=== PATIENT | male | born 1980 | race Caucasian/White ===

== ENCOUNTER 2019-04-21 06:14 | Observation (INO) | payer BC ==
[2019-04-20 12:06] VITALS: BMI 25.0
[2019-04-21 06:53] LABS: #Eosinphils 0.1 thou/uL (0.0-0.7); #Lymphocytes 2.1 thou/uL (1.20-3.40); #Monocytes 0.5 thou/uL (0.11-0.59); #Neutrophils 2.7 thou/uL (1.40-6.50); %Basophils 0.3 % (0.0-1.0); %Eosinophils 1.9 % (0.0-10.0); %Lymphocytes 38.8 % (21.0-51.0); %Monocytes 9.6 % (0.0-10.0); %Neutrophils 49.4 % (42.0-75.0); Hemoglobin 15.6 g/dL (14.0-18.0); Mean Corpuscular HGB CONC 33.5 g/dL (32.0-36.0); Mean Corpuscular Hemoglobin 28.4 pg (27.0-31.0); Mean Corpuscular Volume 84.8 fL (78.0-98.0); Mean Platelet Volume 7.3 fL (7.4-10.4); Platelet Count 244 thou/uL (130-400); Red Blood Cell (RBC) Count 5.49 mill/uL (4.70-6.10); White Blood Cell (WBC) Count 5.4 thou/uL (4.8-10.8)
[2019-04-21 07:00] LABS: PTT 26.2 SEC (22.9-36.1); Prothrombin Time 12.7 SEC (12.0-14.7)
[2019-04-21] MEDS ORDERED: Heparin 10,000 UNITS/1 ML VIAL ONE ×2 (07:07→13:24)
[2019-04-21] MEDS ORDERED: Lidocaine 1% (PF) 30 ML VIAL ONE (07:11)
[2019-04-21 07:13] LABS: Anion Gap 12 mmol/L (10-20); BUN (Urea Nitrogen) 16 mg/dL (8.9-20.6); Calc. Creatinine Clearance 140 mL/min (70-130); Calcium 9.6 mg/dL (7.8-10.44); Carbon Dioxide 24 mmol/L (22-29); Chloride 107 mmol/L (98-107); Estimated GFR-MDRD Greater than 90; Glucose 95 mg/dL (70-105); Sodium 139 mmol/L (136-145)
[2019-04-21] MEDS ORDERED: Propofol 500 MG/50 ML VIAL ONE (10:47)
[2019-04-21] MEDS ORDERED: Midazolam HCl 2 mg/2 ml Vial ONE (10:48)
[2019-04-21] MEDS ORDERED: Fentanyl 100 MCG/2 ML VIAL ONE (10:48)
[2019-04-21] MEDS ORDERED: Heparin 25,000 units/D5W 500 ML ONE (12:05)
[2019-04-21] MEDS ORDERED: Isoproterenol 0.2 MG/1 ML AMP ONE (12:08)
[2019-04-21] MEDS ORDERED: Protamine Sulfate 50 MG/5 ML VIAL ONE (13:57)
[2019-04-21] MEDS ORDERED: Ketorolac Tromethamine 30 MG/ML VIAL IVP PRN (15:09)
[2019-04-21] MEDS ORDERED: Acetaminophen/Codeine 30-300mg Tablet PO PRN (15:10)
[2019-04-21] MEDS ORDERED: Zolpidem Tartrate 5 MG TAB PO PRN (15:10)
[2019-04-21] MEDS ORDERED: Ondansetron PF 4 MG/2 ML Vial ONE (15:28)
--- NOTE | 2019-04-21 15:29 | EKG ---
Test Reason : PREOP Blood Pressure : / mmHG Vent. Rate : 067 BPM Atrial Rate : 067 BPM P-R Int : 136 ms QRS Dur : 106 ms QT Int : 384 ms P-R-T Axes : 050 073 032 degrees QTc Int : 405 ms Normal sinus rhythm Normal ECG No previous ECGs available Confirmed by ROSSI HRENANDEZ, DR. Bustamante (4) on 04/21/2019 3:29:10 PM Referred By: [facility] Confirmed By:DR. Robby RICHEY MD
--- NOTE | 2019-04-21 16:32 | OP ---
DATE OF PROCEDURE: 04/21/2019 PROCEDURES PERFORMED: Electrophysiology study and radiofrequency ablation. ADDITIONAL REFERRING PHYSICIAN: Sudarshan Hayes MD REASON FOR PROCEDURE: Mr. Joyner is a 38-year-old man with structurally normal heart, who presenting with recurrent SVTs, he is for EP study and radiofrequency ablation procedure. DESCRIPTION OF PROCEDURE: The patient received deep sedation with propofol by Anesthesia specialist. After adequate level of sedation achieved, the left and right femoral venous area was prepped and draped and anesthetized using subcutaneous lidocaine. Under ultrasound guidance, left femoral vein was cannulated x2 and a 6 and 8-Tunisian short sheaths were introduced, which was used to advance a decapolar catheter and an octapolar catheter to the RV, RA, CS, and His bundle position. Pacing, mapping, and recording were performed in each location including the CS pacing the left atrium. Following findings were noted, baseline rhythm was sinus rhythm with cycle length 802 milliseconds, MN 149 milliseconds, QRS 190 milliseconds, QT 360 milliseconds, AH 70 milliseconds, and HV 52 milliseconds. The AV Wenckebach cycle length was 340 milliseconds. The VA conduction was seen centrally down to 360 milliseconds. Ventricular pacing after which the retrograde atrial activation pattern changed to a lateral wall CS 2, 3, and 4 area. Earliest activation pattern with VA block 320 milliseconds or less. The extra stimuli testing was performed in atrium with AV jennifer ERP was 600/240 milliseconds. No definite dual AV jennifer physiology was seen during an extra stimulus testing, though a supraventricular tachycardia was induced at 360 milliseconds with earliest atrial activation at the CS 3 and 4 area. Possible pathway potentials were also observed in the CS 3, 4, 5, and 6 leads. During the tachycardia, burst ventricular overdrive pacing performed, which terminated the tachyarrhythmia. 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 Therefore, right femoral venous area was prepped, draped, and anesthetized using subcutaneous lidocaine and an 8 and 11-Tunisian sheath were introduced. For the 11-Tunisian sheath, an intracardiac echocardiogram probe was advanced to the right atrium, which was used to monitor the pericardial space and the transseptal procedure. The 8-Tunisian sheath was changed to an SL1 sheath, which was used to perform transseptal procedure after IV heparin was administered. IV heparin boluses and drip were administered throughout the case to keep ACT over 350. Following that the 3D map of the left atrium was obtained with a ThermoCool SFST catheter advanced through the SL1 sheath in the left atrium. The earliest activation of the atrium was mapped in both in tachycardia as well as during ventricular pacing. On occasional mechanical bumping of the pathway was seen, but its conduction recurred and we were able to locate the earliest activation about 134 milliseconds to the pacing spike. The radiofrequency ablation at this area was performed. A total of 3 lesions at 1 minute and 40 seconds were delivered. During radiofrequency ablation, block over the lateral accessory pathway was seen and central VA conduction was noted. Following that, burst ventricular pacing was performed and we did not see conduction of the lateral accessory pathway. Also, no further recurrent tachyarrhythmia was seen on and off Isuprel. LV pacing was also performed revealing no evidence of further accessory pathway. At the end of the case, the catheters were pulled. The ICE catheter was used to assess pericardial effusion was not seen. Cardiac silhouette did not change throughout the procedure. The sheaths were pulled in the collaborative physician after stopping and reversing IV heparin with protamine. Basket closure device was used as well. CONCLUSION: 1. 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 2. Successful transseptal procedure and intracardiac echo monitoring performed. 3. Successful ablation of the left accessory pathway made at posterior location is performed. 4. Normal sinus and AV jennifer function pre and postprocedure. PLAN: Routine post ablation care and monitor for any recurrence of arrhythmias. Job ID: [id number]
[2019-04-21] MEDS ORDERED: Ketorolac Tromethamine 30 MG/ML VIAL ONE (17:13)
[2019-04-21] MEDS ORDERED: Simethicone Chewable 80 MG TAB PO PRN (22:27)
[2019-04-21] MEDS ORDERED: Ondansetron ODT 4 MG TAB PO PRN (22:28)
[2019-04-22 08:23] VITALS: BP 112/64; TEMP 98.4
--- NOTE | 2019-04-22 12:48 | EKG ---
Test Reason : POSTOP Blood Pressure : / mmHG Vent. Rate : 114 BPM Atrial Rate : 114 BPM P-R Int : 132 ms QRS Dur : 092 ms QT Int : 302 ms P-R-T Axes : 074 068 022 degrees QTc Int : 416 ms Sinus tachycardia Otherwise normal ECG When compared with ECG of 21-APR-2019 10:23, Vent. rate has increased BY 47 BPM Confirmed by ROSSI HERNANDEZ, DR. Bustamante ([id number]) on 04/22/2019 12:47:58 PM Referred By: [facility] Confirmed By:DR. Robby RICHEY MD
--- NOTE | 2019-04-22 12:50 | EKG ---
Test Reason : Blood Pressure : / mmHG Vent. Rate : 074 BPM Atrial Rate : 074 BPM P-R Int : 134 ms QRS Dur : 104 ms QT Int : 376 ms P-R-T Axes : 070 065 037 degrees QTc Int : 417 ms Normal sinus rhythm Normal ECG When compared with ECG of 21-APR-2019 15:19, (Unconfirmed) Vent. rate has decreased BY 40 BPM Confirmed by ROSSI HERNANDEZ, . SChristopher (4) on 04/22/2019 12:50:34 PM Referred By: [facility] Confirmed By:DR. Robby RICHEY MD
--- NOTE | 2019-04-23 04:59 | DIS ---
DATE OF ADMISSION: 04/21/2019 DATE OF DISCHARGE: 04/22/2019 ADMISSION DIAGNOSES: 1. Recurrent supraventricular tachycardia. 2. Status post EP study demonstrating left lower accessory pathway with successful ablation. SUBJECTIVE: Mr. Castano is doing well overnight, had a minor abdominal discomfort but has resolved. His vital signs remained stable. No bleeding at the groin site is noted. OBJECTIVE: VITAL SIGNS: Blood pressure 112/64, heart rate 79, temperature 98.4 degrees Fahrenheit. Rhythm strips reveal continued sinus rhythm. GENERAL: Reveals no groin hematoma. CHEST: Clear. Jugular veins not distended. HEART: Sounds are regular rate and rhythm. No murmur or gallop or rub is appreciated. Groin sites without hematoma or lower extremity edema. ASSESSMENT: Mr. Castano is a very pleasant 38-year-old man with history of supraventricular tachyarrhythmias. He underwent EP study and radiofrequency ablation eliminating lateral accessory pathway. He seems to be doing well with no recurrences. PLAN: Routine discharge. Continue aspirin 81 mg two tablets next month and routine follow up in our office in 6 weeks. Job ID: [id number]
== END 2019-04-22 10:52 | disposition home or self-care (01) ==
LOC: CCL 06:14 → 2SW 14:53
PROVIDERS: ADMIT Internal Medicine Cardiovascular Disease; ATTEND Internal Medicine Cardiovascular Disease
PROC: 4A023FZ Measurement of Cardiac Rhythm, Percutaneous Approach (ICD-10-PCS; principal; 2019-04-22)
PROC: 4A0234Z Measurement of Cardiac Electrical Activity, Percutaneous Approach (ICD-10-PCS; 2019-04-22)
PROC: 02583ZZ Destruction of Conduction Mechanism, Percutaneous Approach (ICD-10-PCS; 2019-04-22)
DX: I47.1 Supraventricular tachycardia (principal)
CPT/HCPCS: 76942; 80048; 85025; 85347; 85610; 85730; 92960; 93005; 93010; 93462; 93613; 93621; 93622; 93623; 93653; 93662; C1730; C1732; C1759; C1769; G0378; J1644; J1885; J2001; J2250; J2405; J2704; J2720; J3010

== ENCOUNTER 2019-09-03 12:46 | Outpatient (CLI) | payer BC ==
[2019-09-03 16:55] LABS: #Basophils 0.1 thou/uL (0.0-0.2); #Eosinphils 0.1 thou/uL (0.0-0.7); #Lymphocytes 3.1 thou/uL (1.20-3.40); #Monocytes 0.6 thou/uL (0.11-0.59); #Neutrophils 3.6 thou/uL (1.40-6.50); %Basophils 0.8 % (0.0-1.0); %Eosinophils 1.4 % (0.0-10.0); %Lymphocytes 41.4 % (21.0-51.0); %Monocytes 8.2 % (0.0-10.0); %Neutrophils 48.2 % (42.0-75.0); Mean Corpuscular HGB CONC 34.9 g/dL (32.0-36.0); Mean Corpuscular Hemoglobin 29.8 pg (27.0-31.0); Mean Corpuscular Volume 85.4 fL (78.0-98.0); Mean Platelet Volume 7.3 fL (7.4-10.4); Platelet Count 280 thou/uL (130-400); Red Blood Cell (RBC) Count 5.38 mill/uL (4.70-6.10); White Blood Cell (WBC) Count 7.4 thou/uL (4.8-10.8)
[2019-09-03 17:14] LABS: Anion Gap 14 mmol/L (10-20); BUN (Urea Nitrogen) 14 mg/dL (8.9-20.6); Calc. Creatinine Clearance 0 mL/min (70-130); Calcium 9.5 mg/dL (7.8-10.44); Carbon Dioxide 25 mmol/L (22-29); Chloride 105 mmol/L (98-107); Estimated GFR-MDRD Greater than 90; Glucose 74 mg/dL (70-105); Potassium 4.2 mmol/L (3.5-5.1); Sodium 140 mmol/L (136-145)
== END 2019-09-03 12:47 | disposition home or self-care (01) ==
LOC: LABBT 12:46
PROVIDERS: ATTEND Surgery
DX: Z01.818 Encounter for other preprocedural examination (principal); K42.9 Umbilical hernia without obstruction or gangrene
CPT/HCPCS: 80048; 85025

== ENCOUNTER 2020-03-25 20:55 | Emergency (ER) | payer BC, SELFPAY ==
[2020-03-25] MEDS ORDERED: Adenosine 6 MG/2 ML VIAL ONE (21:08)
[2020-03-25 21:40] LABS: #Eosinphils 0.1 thou/uL (0.0-0.7); #Lymphocytes 2.6 thou/uL (1.20-3.40); #Monocytes 0.6 thou/uL (0.11-0.59); #Neutrophils 3.2 thou/uL (1.40-6.50); %Basophils 0.2 % (0.0-1.0); %Eosinophils 1.6 % (0.0-10.0); %Lymphocytes 40.2 % (21.0-51.0); %Monocytes 8.7 % (0.0-10.0); %Neutrophils 49.2 % (42.0-75.0); Hemoglobin 15.2 g/dL (14.0-18.0); Mean Corpuscular HGB CONC 34.6 g/dL (32.0-36.0); Mean Corpuscular Hemoglobin 29.6 pg (27.0-31.0); Mean Corpuscular Volume 85.4 fL (78.0-98.0); Mean Platelet Volume 7.8 fL (7.4-10.4); Platelet Count 241 thou/uL (130-400); RBC Distribution Width 11.9 % (11.5-14.5); Red Blood Cell (RBC) Count 5.13 mill/uL (4.70-6.10); White Blood Cell (WBC) Count 6.4 thou/uL (4.8-10.8)
--- NOTE | 2020-03-25 21:56 | RAD ---
FRONTAL RADIOGRAPH CHEST PORTABLE UPRIGHT: 03/25/20 HISTORY: Tachycardia. FINDINGS: there is mild pulmonary vascular prominence with no pneumothorax, pleural fluid, focal consolidatio n, or alveolar edema. IMPRESSION: No focal consolidation or alveolar edema. POS: [facility]
[2020-03-25 22:02] LABS: ALT (SGPT) 13 U/L (8-55); AST (SGOT) 15 U/L (5-34); Albumin 4.1 g/dL (3.5-5.0); Alkaline Phosphatase 66 U/L (40-110); Anion Gap 14 mmol/L (10-20); BUN (Urea Nitrogen) 21 mg/dL (8.9-20.6); Bilirubin, Total 0.3 mg/dL (0.2-1.2); CK (CPK) 229 U/L (30-200); Calc. Creatinine Clearance 0 mL/min (70-130); Calcium 8.8 mg/dL (7.8-10.44); Carbon Dioxide 24 mmol/L (22-29); Chloride 107 mmol/L (98-107); Estimated GFR-MDRD 72; Glucose 114 mg/dL (70-105); Potassium 3.5 mmol/L (3.5-5.1); Protein, Total 7.1 g/dL (6.0-8.3); Sodium 141 mmol/L (136-145)
== END 2020-03-25 22:53 | disposition home or self-care (01) ==
LOC: ERS 20:55
DX: I47.1 Supraventricular tachycardia (principal)
CPT/HCPCS: 71045; 80053; 82550; 83735; 84443; 84484; 85025; 93005; 94760; 96360; J0153

== ENCOUNTER 2020-04-19 14:17 | Outpatient (CLI) | payer BC ==
--- NOTE | 2020-04-19 15:05 | RAD ---
RIGHT ANKLE 3 VIEWS: HISTORY: Injury. Pain. FINDINGS: Mild soft tissue swelling laterally. No evidence of acute fracture. Mild degenerative change with s purring from the medial malleolus. Ununited fragment from the tip of the lateral malleolus with cee ication may represent old injury. IMPRESSION: No acute fracture. POS: [facility]
== END 2020-04-19 14:18 | disposition home or self-care (01) ==
LOC: SCSRAD 14:17
PROVIDERS: ATTEND Family Medicine
DX: S93.411A Sprain of calcaneofibular ligament of right ankle, initial encounter (principal)

== ENCOUNTER 2020-06-23 06:56 | Outpatient (CLI) | payer BC, OTHER ==
[2020-06-23 11:41] LABS: Hemoglobin 16.1 g/dL (14.0-18.0); Mean Corpuscular HGB CONC 34.7 g/dL (32.0-36.0); Mean Corpuscular Hemoglobin 30.5 pg (27.0-31.0); Mean Corpuscular Volume 88.1 fL (78.0-98.0); Mean Platelet Volume 8.6 fL (7.4-10.4); Platelet Count 265 thou/uL (130-400); RBC Distribution Width 12.5 % (11.5-14.5); Red Blood Cell (RBC) Count 5.27 mill/uL (4.70-6.10); White Blood Cell (WBC) Count 7.6 thou/uL (4.8-10.8)
[2020-06-23 12:08] LABS: INR-International Normal Ratio 0.9; PTT 26.4 sec (22.9-36.1); Prothrombin Time 12.1 sec (12.0-14.7)
[2020-06-23 13:15] LABS: Anion Gap 16 mmol/L (10-20); BUN (Urea Nitrogen) 18 mg/dL (8.9-20.6); Calc. Creatinine Clearance 0 mL/min (70-130); Calcium 9.6 mg/dL (7.8-10.44); Carbon Dioxide 23 mmol/L (22-29); Chloride 105 mmol/L (98-107); Estimated GFR-MDRD 84; Glucose 98 mg/dL (70-105); Potassium 4.6 mmol/L (3.5-5.1); Sodium 139 mmol/L (136-145)
[2020-06-23 18:14] LABS: SARS-CoV-2 MS2 Positive; SARS-CoV-2 N Gene Negative; SARS-CoV-2 S Gene Negative; SARS-CoV-2 by NAA Not Detected (NotDetected); SARS-CoV-2 orf1ab Negative
--- NOTE | 2020-06-26 17:21 | EKG ---
Test Reason : Blood Pressure : / mmHG Vent. Rate : 068 BPM Atrial Rate : 068 BPM P-R Int : 124 ms QRS Dur : 098 ms QT Int : 366 ms P-R-T Axes : 075 090 052 degrees QTc Int : 389 ms Normal sinus rhythm with sinus arrhythmia Rightward axis ST elevation, consider early repolarization Borderline ECG No previous ECGs available Confirmed by DR. Calvin PATRICK (3) on 06/26/2020 5:21:38 PM Referred By: [facility] Confirmed By:DR. Calvin PATRICK
== END 2020-06-23 06:57 | disposition home or self-care (01) ==
LOC: LABBT 06:56
PROVIDERS: ATTEND Internal Medicine Cardiovascular Disease
DX: Z01.818 Encounter for other preprocedural examination (principal); Z20.828 Contact with and (suspected) exposure to other viral communicable diseases
CPT/HCPCS: 80048; 85027; 85610; 85730; 87635; 93005; 93010; U0003

== ENCOUNTER 2020-06-28 06:00 | Observation (INO) | payer BC ==
[2020-06-28] MEDS ORDERED: Midazolam HCl 2 mg/2 ml Vial ONE (06:52)
[2020-06-28] MEDS ORDERED: Fentanyl 100 MCG/2 ML VIAL ONE (06:52)
[2020-06-28] MEDS ORDERED: Lidocaine 1% (PF) 30 ML VIAL ONE (06:53)
[2020-06-28] MEDS ORDERED: Isoproterenol 0.2 MG/1 ML AMP ONE ×2 (06:53→09:58)
[2020-06-28] MEDS ORDERED: Heparin 10,000 UNITS/ 10 ML VIAL ONE ×2 (06:59→09:57)
[2020-06-28] MEDS ORDERED: PROPOFOL 20 ML ONE (07:02)
[2020-06-28] MEDS ORDERED: Propofol 500 MG/50 ML VIAL ONE (07:02)
[2020-06-28] MEDS ORDERED: Heparin 25,000 units/D5W 500 ML ONE (09:31)
[2020-06-28] MEDS ORDERED: Protamine Sulfate 50 MG/5 ML VIAL ONE (10:24)
[2020-06-28] MEDS ORDERED: Lidocaine 1% PF 5 ML VIAL ONE (10:41)
[2020-06-28] MEDS ORDERED: PROPOFOL 200 MG/20 ML VIAL ONE (10:41)
[2020-06-28] MEDS ORDERED: Ondansetron PF 4 MG/2 ML Vial ONE (10:41)
[2020-06-28] MEDS ORDERED: PHENYLEPHRINE-NS 100 MCG/ML 10 ML SYRINGE ONE (10:41)
[2020-06-28 13:30] VITALS: BMI 22.9
[2020-06-28] MEDS: Ketorolac Tromethamine 30 MG/ML VIAL IVP PRN ×2 (13:55→19:44)
--- NOTE | 2020-06-29 07:40 | OP ---
DATE OF PROCEDURE: 06/28/2020 PROCEDURE PERFORMED: Electrophysiology study and radiofrequency ablation. ADDITIONAL REFERRING PHYSICIAN: Dr. Sudarshan Hayes. REASON FOR PROCEDURE: Mr. Castano is a 40-year-old man with prior history of supraventricular tachycardia. He had a prior EP study and ablation on April 21, 2019, but had recurrent palpitation in April 2020 with documentation of a narrow complex SVT. He is here for repeat EP study and ablation. DESCRIPTION OF PROCEDURE: The patient received general anesthesia by Anesthesia specialist. After adequate level of sedation achieved, the left and right femoral venous areas were prepped, draped, and anesthetized with subcutaneous lidocaine and under ultrasound guidance, both femoral veins were cannulated x2. On the left side, a 6 and 8-Djiboutian sheath were used to advanced an octapolar and a DecaNav catheter to the right atrium, right ventricle, His bundle and CS locations. Pacing, mapping, and recording were performed in each location including pacing the CS and the left atrium. Following findings were noted; the baseline rhythm was sinus rhythm, cycle length 793 milliseconds, UT 138 milliseconds, QRS 104 milliseconds, QT 367 milliseconds, AH 97 milliseconds, HV 48 milliseconds. AV Wenckebach cycle length 360 milliseconds, retrograde Wenckebach cycle length 340 milliseconds. The eccentric retrograde VA conduction was seen with earliest activation in the CS 5, 6 area in the posterolateral region. No dual AV jennifer physiology was noted at baseline. Burst atrial pacing and extrastimuli induced a narrow complex supraventricular tachycardia with cycle length 209 milliseconds with earliest atrial activation in the left posterolateral area. Ventricular overdrive pacing reliably terminated the arrhythmia. Diagnosis of AV reentry tachycardia with location of pathway seems to be similar to the prior ablation area. From the right femoral venous access, an 8 and 11-Djiboutian sheath was introduced through which an intracardiac echocardiogram probe was advanced to the right atrium and was used to monitor the transseptal puncture, the pericardial space, and the catheter manipulation throughout the procedure. Also from the right femoral vein, an SL2 transseptal sheath was advanced to the right atrium and with the help of a Front Row powered needle, transseptal puncture was performed under ultrasound and fluoroscopic monitoring. Prior to the puncture, IV heparin was administered in a bolus and drip fashion which was periodically adjusted to keep the ACT over 350 throughout the procedure. Following that, the tachycardia was reinduced and 3D mapping of the left atrium was obtained. The earliest activation was again noted in the mid posterior septal area in the atrium and radiofrequency ablation was delivered at this point. Upon termination, the tachycardia was seen with changing of the activation pattern of the left atrium and the CS catheters were seen. Additional lesions were placed in the area to assure no conduction through the left posterolateral pathway. Following this the supraventricular tachycardia was re-inducible although with a changed retrograde atrial activation pattern, the earliest activation at this point was mapped to a left posteroseptal area. Radiofrequency in this area also eliminated the supraventricular tachycardia which likely represented a AV reentry tachycardia utilizing a left posteroseptal pathway separate from the prior previously ablated pathway. Prompt termination of the tachycardia was seen during ablation. Additional lesions placed in the area to ascertain no retrograde conduction. Following this, retrograde VA conduction was normal with VA Wenckebach cycle. The retrograde VA conduction post ablation remained at less than 380 milliseconds with central retrograde VA conduction. No re-induction of the SVT was seen on and off Isuprel. Also, the retrograde VA conduction remained with central retrograde VA activation. During the burst atrial pacing maneuvers, transient atrial fibrillation was seen, but that spontaneously terminated. After 30 minutes of wait, no change was noted. The LV pacing was performed demonstrating similar retrograde VA conduction from RV pacing. The catheter was removed from the left side and long sheath was exchanged to short sheath. Vascular closure was performed at each location after protamine administration to reverse IV heparin. The intracardiac echo and fluoroscopy revealed no change in the pericardial silhouette. No effusion noted. With vascular ultrasound guidance, Vascade closure of all four femoral venous access sites were performed. CONCLUSION: 1. Inducible AV reentry tachycardia at 390 milliseconds with left posterolateral pathway seen similar to prior ablation site, was re-ablated and eliminated. 2. Additional AV reentry tachycardia with cycle length 390 milliseconds with a left posteroseptal earliest activation/pathway also inducible and ablation at this point eliminated all SVT inducibility and the retrograde VA conduction made central. 3. No evidence of dual AV jennifer physiology. 4. Aberrantly conducted complexes were seen during rapid atrial pacing with normal HV interval. No evidence of antegrade accessory pathway is noted. 5. Transient atrial fibrillation induced, but self-terminated throughout the procedure. 6. Normal AV jennifer, sinus jennifer and His-Purkinje function pre and post procedure seen. PLAN: 1. Routine post ablation care. 2. Continue monitoring for recurrent atrial arrhythmias or supraventricular arrhythmias. For now, oral anticoagulation recommended unless clinical atrial fibrillation is seen. Job ID: [id number] [facility]
[2020-06-29] MEDS ORDERED: Aspirin 81 mg Enteric Coated Tablet PO SCH (09:00)
[2020-06-29] MEDS ORDERED: Fluticasone Propionate Nasal Spray 16 gm Bottle NASAL SCH (09:00)
[2020-06-29 10:39] VITALS: BP 113/66; TEMP 96.9
--- NOTE | 2020-07-01 01:55 | DIS ---
DATE OF ADMISSION: 06/28/2020 DATE OF DISCHARGE: 06/29/2020 DIAGNOSIS: Supraventricular tachycardia. PROCEDURES PERFORMED: Include electrophysiology study and radiofrequency ablation for 2 distinct left-sided accessory pathways. HOSPITAL COURSE: The patient was kept overnight given the transseptal access and heparinization. He has some tenderness at his bilateral groin sites, but there is no evident bleeding complications or hematoma present. He has been up, ambulating without difficulty. He is eating and voiding normally. He feels stable and is eager to discharge to home today. Bilateral groin sites were closed with a Vascade closure systems x4. Heart rate has been stable in sinus rhythm with no recurrent SVT episodes overnight. PHYSICAL EXAMINATION: VITAL SIGNS: Temperature 96.9 degrees Fahrenheit, pulse 74, blood pressure 113/66, respirations 12, oxygen 96% on room air. GENERAL: The patient is alert and oriented. Speech is clear. Affect is appropriate. CARDIOVASCULAR: Heart rate is regularly regular with a crisp S1, S2. LUNGS: Clear to auscultation bilaterally. EXTREMITIES: Bilateral groin sites are stable without evidence of hematoma or bleeding complications with good peripheral circulation. Strong pulses in the dorsalis pedis. GAIT: Stable. DISCHARGE MEDICATIONS: 1. Aspirin 81 mg daily x30 days. 2. May resume Flonase as needed. DISCHARGE INSTRUCTIONS: No lifting more than 15 pounds for one week or until bilateral groin sites are nontender. Then, may resume activity gradually and as tolerated. No driving for one week. Contact [facility] with any postablation concerns. Followup in 6 weeks will be arranged. CONDITION AT DISCHARGE: Stable. Job ID: [id number] [facility]
--- NOTE | 2020-07-01 16:50 | EKG ---
Test Reason : Blood Pressure : / mmHG Vent. Rate : 067 BPM Atrial Rate : 067 BPM P-R Int : 122 ms QRS Dur : 096 ms QT Int : 380 ms P-R-T Axes : 072 073 034 degrees QTc Int : 401 ms Normal sinus rhythm ST elevation, consider early repolarization Borderline ECG When compared with ECG of 23-JUN-2020 09:19, No significant change was found Confirmed by DR. Carolyn BERGMAN ([id number]) on 07/01/2020 4:49:35 PM Referred By: [facility] Confirmed By:DR. Carolyn BERGMAN
== END 2020-06-29 11:02 | disposition home or self-care (01) ==
LOC: SDC 06:00 → 2SW 11:15
PROVIDERS: ADMIT Internal Medicine Cardiovascular Disease; ATTEND Internal Medicine Cardiovascular Disease
PROC: 4A023FZ Measurement of Cardiac Rhythm, Percutaneous Approach (ICD-10-PCS; principal; 2020-06-29)
PROC: 4A0234Z Measurement of Cardiac Electrical Activity, Percutaneous Approach (ICD-10-PCS; 2020-06-29)
PROC: 02583ZZ Destruction of Conduction Mechanism, Percutaneous Approach (ICD-10-PCS; 2020-06-29)
PROC: 02K83ZZ Map Conduction Mechanism, Percutaneous Approach (ICD-10-PCS; 2020-06-29)
DX: I47.1 Supraventricular tachycardia (principal); I48.91 Unspecified atrial fibrillation; Z79.899 Other long term (current) drug therapy
CPT/HCPCS: 76942; 85347; 93005; 93010; 93613; 93622; 93623; 93653; 93662; 96374; 96376; C1730; C1732; C1759; G0378; J1644; J1885; J2001; J2250; J2405; J2704; J2720; J3010

== ENCOUNTER 2022-04-01 11:44 | Outpatient (CLI) | payer OTHER | END 2022-04-01 11:45 | disposition home or self-care (01) | LOC: RAD 11:44 | PROVIDERS: ATTEND Family Medicine | DX: R07.9 Chest pain, unspecified (principal) | CPT/HCPCS: 71046 ==